=== PATIENT | male | born 1945 | race Caucasian/White ===

== ENCOUNTER → 2017-12-23 17:02 | Outpatient (CLI) | payer MEDICARE, OTHER ==
[2013-01-05 08:05] VITALS: BMI 29.9
[~2017-12-23 17:02] MED LIST: AMBIEN10 MG PO; ASPIRIN EC81 M1 PO; ELIQUIS2.5 MG PO; HYDROCODONE-APA1 TAB PO; POTASSIUM99 M1 PO; PRAVACHOL20 MG PO; ULTRAM50 MG PO
[2018-01-17 09:55] VITALS: BMI 27.2
== END | disposition home or self-care (01) ==
LOC: D.LABREF 17:02
DX: M17.11 Unilateral primary osteoarthritis, right knee (principal); Z11.8 Encounter for screening for other infectious and parasitic diseases

== ENCOUNTER 2018-01-12 10:00 | Inpatient (IN) | payer MEDICARE, OTHER ==
[~2018-01-12] VITALS: Ht 182.9 cm; Wt 90.9 kg
--- NOTE | ~2018-01-12 | OP ---
PATIENT NAME: AYDEN NICHOLE MEDICAL RECORD: [id number] LOCATION:[id number] ADMISSION DATE:01/17/18 SURGEON: AYDEN PETE MD DATE OF OPERATION: 01/17/2018 PREOPERATIVE DIAGNOSIS: Degenerative arthritis, right knee. POSTOPERATIVE DIAGNOSIS: Degenerative arthritis, right knee. PROCEDURE: Right total knee arthroplasty. SURGEON: Ayden Pete MD ANESTHESIA: General. INTRAOPERATIVE COMPLICATIONS: None. SUMMARY OF PATHOLOGIC FINDINGS: Extensive osteoarthritis, tricompartmental. IMPLANTS USED: [place] triathlon total knee arthroplasty size 6 distal femur, 6 tibial baseplate, 9 polyethylene insert, 36 x 10 patellar insert cemented. OPERATIVE SUMMARY IN DETAIL: After obtaining appropriate preoperative orthopedic surgery consent as well as anesthetic consultation, evaluation and clearance, the patient was brought to the operating room and placed on the operating table in supine position. After adequate general laryngeal mask airway was administered, tourniquet was placed about the proximal aspect of the right lower extremity. Right lower extremity was then prepped and draped in routine sterile fashion. Leg was elevated and exsanguinated, tourniquet was inflated to 350 mmHg. Routine midline incision was created, taken down for paramedian arthrotomy. Patella was everted. Soft tissue excision was done in the usual fashion. Distal femoral intramedullary guide hole was created for distal intramedullary guided cuts. The entire proximal tibia was exposed. Intramedullary guide hole was created for intramedullary guided tibial cut as well. Tibia was cut after measurements were taken and the chamfer cuts of the distal femur were made. Trials were put into place, taken through range of motion that is corresponding to the above-mentioned implants. Knee was found to be stable in all planes. Proximal tibia and distal femoral final preparations were made. This was followed by resection of approximately 10 mm of patella for patellar resurfacing. Having completed this, wound was copiously irrigated and evacuated of all fragments. Bone ends were dried. Final components were cemented into place. All excess cement was removed. After cement was allowed to harden, knee was taken through range of motion. Patellar tracking was excellent and the knee was stable in all planes. Further irrigation was then followed by closure of the paramedian arthrotomy with #2 Ethibond followed by #1 Vicryl, 2-0 Vicryl and skin merari. Sterile dressings were applied. The patient was awakened and taken to recovery room in stable condition. All final needle and sponge counts were correct. TRANSINT:[id number] Voice Confirmation ID: [id number] DOCUMENT ID: [id number] OPERATIVE REPORT [id number] AYDEN NICHOLE MD, AYDEN MARTINEZ at 1526 CC: [id number] DICTATION DATE: 01/17/1837 FURNITURE SALES CONSULTANT: 01/17/18 1058 ADM IN [id number] [place] [address]
[~2018-01-12 10:00] MED LIST changes: -ELIQUIS2.5 MG PO
[2018-01-12 11:32] LABS: APPEARANCE CLEAR (CLEAR); COLOR DK YELLOW (YELLOW)
[2018-01-12 11:33] LABS: BILIRUBIN NEGATIVE (NEGATIVE); GLUCOSE NEGATIVE (NEGATIVE); KETONE NEGATIVE (NEGATIVE); NITRITE NEGATIVE (NEGATIVE); PROTEIN NEGATIVE (NEGATIVE); SPECIFIC GRAVITY 1.015 (1.005-1.020); UROBILINOGEN NORMAL (NORMAL)
[2018-01-12 11:34] LABS: BASOPHILS 0.4 % (0-2); EOSINOPHILS 0.7 % (0-7); HEMATOCRIT 43.2 % (42.0-54.0); HEMOGLOBIN 14.8 g/dL (13.5-17.5); IMMATURE GRANULOCYTES 0.3 % (0-5); LYMPHOCYTES 14.9 % (15-50); MCHC 34.3 g/dL (31.0-37.0); MCV 96.2 fL (80.0-100.0); MEAN PLATELET VOLUME 10.7 fL (7.4-10.4); MONOCYTES 7.2 % (2-11); NEUTROPHILS 76.5 % (40-80); PLATELET COUNT 179 10x3/uL (130-400); RBC 4.49 10x6/uL (4.20-6.10); RDW 12.9 % (11.5-14.5); WBC 7.1 10x3/uL (4.8-10.8)
[2018-01-12 11:40] LABS: ANION GAP 13.3 mmol/L (8-16); CALCIUM 9.2 mg/dL (8.5-10.1); CARBON DIOXIDE 26.6 mmol/L (21.0-32.0); CREATININE - SERUM 1.1 mg/dL (0.6-1.3); POTASSIUM - SERUM 3.9 mmol/L (3.5-5.1)
[2018-01-12 11:51] LABS: APTT 26.7 SECONDS (22.8-39.4); INR 0.96 (0.85-1.17); PROTIME 12.4 SECONDS (11.6-15.0)
[2018-01-17 06:13] VITALS: BP 136/70; BMI 27.2
[2018-01-17 09:42] VITALS: BP 147/78
[2018-01-17 09:55] VITALS: BP 138/77; Ht 182.9 cm; Wt 90.9 kg
[2018-01-17 15:22] VITALS: BP 123/77
[2018-01-17 21:56] VITALS: BP 135/89
[2018-01-18 05:18] VITALS: BP 138/88
[2018-01-18 05:18] LABS: HEMATOCRIT 36.7 % (42.0-54.0); HEMOGLOBIN 12.6 g/dL (13.5-17.5); MCH 32.7 pg (26.0-34.0); MCHC 34.3 g/dL (31.0-37.0); MCV 95.3 fL (80.0-100.0); MEAN PLATELET VOLUME 10.9 fL (7.4-10.4); RBC 3.85 10x6/uL (4.20-6.10); WBC 6.7 10x3/uL (4.8-10.8)
[2018-01-18 08:55] VITALS: BP 121/71
[2018-01-18 12:48] VITALS: BP 118/72
[2018-01-18 16:04] VITALS: BP 101/54
[2018-01-18 21:26] VITALS: BP 122/62
[2018-01-19 04:47] VITALS: BP 134/64
[2018-01-19 05:57] LABS: HEMATOCRIT 35.6 % (42.0-54.0); HEMOGLOBIN 12.2 g/dL (13.5-17.5); MCH 32.5 pg (26.0-34.0); MCHC 34.3 g/dL (31.0-37.0); MCV 94.9 fL (80.0-100.0); MEAN PLATELET VOLUME 11.2 fL (7.4-10.4); RBC 3.75 10x6/uL (4.20-6.10); RDW 13.2 % (11.5-14.5)
[2018-01-19 06:36] LABS: CALC OSMOLALITY 272 mosm/kg (275-300); CALCIUM 8.5 mg/dL (8.5-10.1); CARBON DIOXIDE 25.9 mmol/L (21.0-32.0); CHLORIDE - SERUM 102 mmol/L (98-107); CREATININE - SERUM 0.9 mg/dL (0.6-1.3); GLUCOSE 112 mg/dL (74-106); POTASSIUM - SERUM 3.6 mmol/L (3.5-5.1); SODIUM 136 mmol/L (136-145); UREA NITROGEN 12 mg/dL (7-18); eGFR NON AFRICAN AMERICAN 87 mL/min (90-120)
[2018-01-19 08:03] VITALS: BP 128/75
[2018-01-19 12:35] VITALS: BP 133/65
[2018-01-19 21:41] VITALS: BP 93/56
[2018-01-20 02:35] VITALS: BP 103/52
[2018-01-20 06:20] VITALS: BP 125/66
[2018-01-20] MEDS ORDERED: ELIQUIS2.5 MG PO (08:07)
[2018-01-20] MEDS ORDERED: HYDROCODONE-APA1 TAB PO (08:07)
[2018-01-20 09:07] VITALS: BP 113/70
[2018-01-20 22:16] VITALS: BP 101/68
[2018-01-21 05:26] VITALS: BP 110/58
[2018-01-21 08:03] VITALS: BP 137/71
[2018-01-21 12:58] VITALS: BP 127/76
== END 2018-01-21 16:51 | DRG 470 ==
LOC: D.MS 01-17 05:17 → D.SDCHOLD 01-17 05:17 → D.MS 01-17 09:24 → D.SDCHOLD 01-17 10:00 → D.MS 01-17 16:05
PROVIDERS: Orthopaedic Surgery
PROC: 0SRC0J9 Replacement of Right Knee Joint with Synthetic Substitute, Cemented, Open Approach (ICD-10-PCS; principal; 2018-01-17 07:30)
DX: M17.11 Unilateral primary osteoarthritis, right knee (principal); M70.61 Trochanteric bursitis, right hip; K59.00 Constipation, unspecified; Z87.891 Personal history of nicotine dependence